=== PATIENT | female | born 1975 | race Caucasian/White ===

== ENCOUNTER 2016-07-13 00:22 | Inpatient (IN) | payer OTHER ==
[2016-07-13] VITALS (97 sets, daily range): BP systolic 102–157; BP diastolic 58–107; PULSE 79–114; RESP 16–18; TEMP 97.8–99; O2SAT 100
[~2016-07-13 00:22] MED LIST: LEVO.075 PO; SULF1SOL4 OS; Z.0.BCPILL PO
[2016-07-13] MEDS ORDERED: NS 1000 ML OTHER PRN (01:00)
[2016-07-13] MEDS ORDERED: OXYTOCIN 30 UNITS 500ML PREMIX IV ONE (01:00)
[2016-07-13] MEDS ORDERED: NS 500 ML BOLUS IV PRN (01:00)
[2016-07-13] MEDS ORDERED: LIDOCAINE HCL 1% 50 ML VIAL I-DERMAL PRN (01:00)
[2016-07-13] MEDS ORDERED: LIDOCAINE HCL 1% 50 ML VIAL INFIL PRN (01:00)
[2016-07-13] MEDS ORDERED: PENICILLIN G POT 5,000,000 UNITS/NS 100 ML (Mini-Bag Plus) IV ONE ×4 (01:00→07:00)
[2016-07-13] MEDS ORDERED: LACTATED RINGER'S 1000 ML BOLUS IV PRN (01:00)
[2016-07-13] MEDS ORDERED: ONDANSETRON HCL 4 MG/2 ML VIAL IV PRN (01:00)
[2016-07-13] MEDS ORDERED: MINERAL OIL 10 ML VIAL TOPICAL PRN (01:00)
[2016-07-13] MEDS ORDERED: ZOLPIDEM TARTRATE 10 MG TAB PO PRN (01:00)
[2016-07-13] MEDS ORDERED: DINOPROSTONE 10 MG INSERT - REMOVE AT 0600 VAGINAL ONE (01:00)
[2016-07-13] MEDS ORDERED: NS 1000 ML IV PRN (01:00)
[2016-07-13] MEDS ORDERED: CITRIC ACID-SODIUM CITRATE LIQ 30 ML UDC PO SCH (01:00)
[2016-07-13] MEDS: LACTATED RINGER'S 1000 ML IV SCH ×2 (01:15→11:28)
[2016-07-13] MEDS ORDERED: diphenhydrAMINE HCL 25 MG CAP PO SCH (02:00)
[2016-07-13 02:05] LABS: AUTOMATED NEUTROPHIL # 6.8 TH/MM3 (1.8-7.7); BASOPHIL % 0.4 % (0.0-2.0); EOSINOPHIL # 0.2 TH/MM3 (0-0.4); EOSINOPHIL % 1.9 % (0.0-4.0); HEMATOCRIT 34.3 % (35.0-46.0); HEMO FLAGS DIFF FINAL; LYMPH % 21.1 % (9.0-44.0); LYMPHOCYTE # 2.1 TH/MM3 (1.0-4.8); MEAN CELL VOLUME 84.2 FL (80.0-100.0); MEAN CORPUSCULAR HEMOGLOBIN 28.8 PG (27.0-34.0); MEAN CORPUSCULAR HGB CONC 34.3 % (32.0-36.0); MONO % 7.8 % (0.0-8.0); NEUT % 68.8 % (16.0-70.0); PLATELET COUNT 214 TH/MM3 (150-450); RED BLOOD COUNT 4.08 MIL/MM3 (4.00-5.30); WHITE BLOOD COUNT 9.9 TH/MM3 (4.0-11.0)
[2016-07-13 02:12] LABS: BACTERIA, URINE RARE /hpf; BLOOD, URINE NEG (NEG); CALCIUM OXALATE CRYSTALS,URINE MANY /hpf; GLUCOSE,URINE NEG (NEG); KETONE, URINE NEG (NEG); MUCUS URINE FEW /lpf (OCC); NITRITE,URINE NEG (NEG); SQUAMOUS EPITHELIAL CELL URINE 14 /hpf (0-5); TRANSITIONAL EPI CELLS, URINE <1 /hpf; URINE COLOR YELLOW (YELLW/STRAW)
[2016-07-13 02:14] LABS: COMMENT (UR) CULTURE INDICATED; CULTURE IF INDICATED CULTURE INDICATED
[2016-07-13] MEDS ORDERED: PRENCAP10 PO (02:21)
[2016-07-13] MEDS ORDERED: BENA25TA3 PO (02:22)
[2016-07-13] MEDS ORDERED: ACYC1POW8 PO (02:23)
[2016-07-13 02:29] LABS: ALT (GPT) 13 U/L (10-53); ANION GAP 10 MEQ/L (5-15); AST (GOT) 12 U/L (15-37); BICARBONATE 24.1 MEQ/L (21.0-32.0); BLOOD UREA NITROGEN 8 MG/DL (7-18); CHLORIDE 105 MEQ/L (98-107); GLOMERULAR FILTRATION RATE 137 ML/MIN (>89); POTASSIUM 3.7 MEQ/L (3.5-5.1); SODIUM (NA) 139 MEQ/L (136-145)
[2016-07-13 02:32] LABS: ALKALINE PHOSPHATASE 105 U/L (45-117); TOTAL BILIRUBIN ADULT 0.2 MG/DL (0.2-1.0)
[2016-07-13] MEDS ORDERED: OXYTOCIN 30 UNITS/NS 500ML PREMIX IV SCH (07:00)
--- NOTE | 2016-07-13 10:10 | HHI.HP ---
HPI Chief Complaint pt presents for induction of labor. +FM, denies vaginal bleeding, LOF or CTX Date Seen: Jul 13, 2016 Time Seen: 09:00 Travel History International Travel<30 Days: No Contact w/Intl Traveler<30Days: No History of Present Illness Para: 0 : 1 History Past Medical History Narrative Medical hypothyroidism Obstetric History Obstetric History g1 Past Surgical History Narrative Surgical denies Family History Narrative Family History mom-ovarian cancer dad-heart disease Social History Alcohol Use: No Tobacco Use: No Substance Abuse: No Allergies-Medications (Allergen,Severity, Reaction): Coded Allergies: No Known Allergies (Verified , 07/13/16) Home Meds Reported Medications Acyclovir (Bulk) (Acyclovir)1 Pow Pow1 Tab PO DAILY 07/13/16 Diphenhydramine (Benadryl Allergy)25 Mg Tab50 Mg PO Q6H PRN (ALLERGIES) Ref 0 07/13/16 Vit W/ Ferrous Fumara ( Multi +Dha 27-0.8-228 mg)1 Cap Cap1 Tab PO DAILY 07/13/16 Discontinued Reported Medications Levothyroxine Sodium (Synthroid)75 Mcg Tab75 Mcg PO DAILY Ref 0 07/21/08 Miscellaneous ( Control Pills) Tab1 Tab PO DAILY Ref 0 07/21/08 Discontinued Scripts Sulfacetamide Sodium (Bleph-10)5 Ml Soln2 Drop OS QID #20 ML Ref 0 Prov:COMFORT PRABHAKAR M.D. 07/21/08 Review of Systems Except as stated in HPI: all other systems reviewed are Neg Physical Exam Vital Signs Date Time Temp Pulse Resp B/P Pulse Ox O2 Delivery O2 Flow Rate FiO2 07/13/16 09:42 18 07/13/16 09:15 16 07/13/16 09:14 83 140/85 07/13/16 08:41 18 07/13/16 08:15 16 07/13/16 07:58 86 132/82 07/13/16 07:45 138/94 07/13/16 07:45 98.3 07/13/16 07:45 88 18 07/13/16 07:15 16 07/13/16 05:15 18 07/13/16 04:45 18 07/13/16 04:15 18 07/13/16 03:45 91 18 07/13/16 03:45 139/96 07/13/16 02:15 18 07/13/16 02:10 90 151/99 07/13/16 01:43 18 07/13/16 01:42 90 145/94 07/13/16 01:31 84 Narrative GENERAL: Well-nourished, well-developed patient. SKIN: Warm and dry. HEAD: Normocephalic and atraumatic. EYES: No scleral icterus. No injection or drainage. ENT: No nasal drainage noted. Mucous membranes pink. Airway patent. NECK: Supple, trachea midline. No JVD. CARDIOVASCULAR: Regular rate and rhythm without murmurs, gallops, or rubs. RESPIRATORY: Breath sounds equal bilaterally. No accessory muscle use. BREASTS: Bilateral exam showed no masses , no retractions, no nipple discharge. ABDOMEN/GI: Abdomen soft, non-tender, bowel sounds present, no rebound, no guarding Gravid to [-]40 weeks size Fundal Height: [-] GENITOURINARY: External Genitalia: intact and normal in appearance BUS glands: [-] Cervix: [-] Dilatation: [-] 1-2 Effacement: [-] 50 Station: [-] -3 Presentation: [-] vertex Membranes: [ ruptured] Uterine Contractions: [-] FHT's: Category: [-] 1 Baseline: [-] 140s Reactive: [-] + Variability: [-] mod Decels: [-] none EXTREMITIES: No cyanosis or edema. BACK: Nontender without obvious deformity. No CVA tenderness. NEUROLOGICAL: Awake and alert. Motor and sensory grossly within normal limits. Five out of 5 muscle strength in all muscle groups. Normal speech. Data Data Vital Signs Reviewed: Yes Orders Admit To Inpatient (07/13/16 ) Activity Oob Ad Sharon (07/13/16 00:42) ^ Labor Induction (07/13/16 00:42) ^ Vaginal Insert (07/13/16 00:42) ^ Vaginal Lavage (07/13/16 00:42) Heart (07/13/16 00:42) Admit To Inpatient (07/13/16 ) Vital Signs (Adult) .Per protocol (07/13/16 00:43) Activity Oob Ad Sharon (07/13/16 00:43) Heart (07/13/16 00:43) Amnioinfusion (07/13/16 00:43) Urinary Catheter Management .ONCE (07/13/16 00:43) Diet Liquid (07/13/16 Breakfast) Complete Blood Count With Diff (07/13/16 00:43) Hold Clot (07/13/16 00:43) Abo/Rh Blood Type (07/13/16 00:43) Urinalysis - C+S If Indicated (07/13/16 00:43) Resp Oxygen Non Rebreathe Mask (07/13/16 ) ^ Epidural / Intrathecal Infus (07/13/16 00:43) Lactated Ringer's 1000 Ml Inj (Lr 1000 M (07/13/16 01:00) Lactated Ringer's 1000 Ml Inj (Lr 1000 M (07/13/16 01:00) Sodium Chlorid 0.9% 500 Ml Inj (Ns 500 M (07/13/16 01:00) Sodium Chlor 0.9% 1000 Ml Inj (Ns 1000 M (07/13/16 01:00) Lidocaine 1% Inj (50 Ml) (Xylocaine 1% I (07/13/16 01:00) Citric Acid-Sodium Citrate Liq (Bicitra (07/13/16 01:00) Ondansetron Inj (Zofran Inj) (07/13/16 01:00) Fentanyl Inj (Fentanyl Inj) (07/13/16 01:00) Fentanyl Inj (Fentanyl Inj) (07/13/16 01:00) Penicillin G Potassium Inj (Pfizerpen-G (07/13/16 01:00) Penicillin G Potassium Inj (Pfizerpen-G (07/13/16 06:00) Oxytocin 30 Units-500ml Premix (Pitocin (07/13/16 01:00) Lidocaine 1% Inj (50 Ml) (Xylocaine 1% I (07/13/16 01:00) Light Mineral Oil (Muri-Lube Oil) (07/13/16 01:00) Zolpidem (Ambien) (07/13/16 01:00) Dinoprostone Vag Insert (Cervidil Vag In (07/13/16 01:00) Sodium Chlor 0.9% 1000 Ml Inj (Ns 1000 M (07/13/16 01:00) Comprehensive Metabolic Panel (07/13/16 01:53) Diphenhydramine (Benadryl) (07/13/16 02:00) Urine Culture (07/13/16 00:40) ^ Non Stress Test (07/13/16 06:34) Response To Medication .Post New Med Administration, Reaction (07/13/16 06:34) ^ Discontinue Medication (07/13/16 06:34) Oxytocin 30 Units-500ml Premix (Pitocin (07/13/16 07:00) Penicillin G Potassium Inj (Pfizerpen-G (07/13/16 07:00) Penicillin G Potassium Inj (Pfizerpen-G (07/13/16 11:00) Labs Laboratory Tests Test 07/13/16 07/13/16 00:40 01:10 Urine Color YELLOW Urine Turbidity HAZY Urine pH 6.0 Urine Specific [place] 1.020 Urine Protein TRACE Urine Glucose (UA) NEG Urine Ketones NEG Urine Occult Blood NEG Urine Nitrite NEG Urine Bilirubin NEG Urine Urobilinogen LESS THAN 2.0 Urine Leukocyte Esterase LARGE Urine RBC 4 Urine WBC 16 Urine Squamous Epithelial 14 Cells Urine Transitional Epithelial <1 Cells Urine Calcium Oxalate Crystals MANY Urine Bacteria RARE Urine Mucus FEW Microscopic Urinalysis Comment CULTURE INDICATED White Blood Count 9.9 Red Blood Count 4.08 Hemoglobin 11.8 Hematocrit 34.3 Mean Corpuscular Volume 84.2 Mean Corpuscular Hemoglobin 28.8 Mean Corpuscular Hemoglobin 34.3 Concent Red Cell Distribution Width 14.0 Platelet Count 214 Mean Platelet Volume 8.5 Neutrophils (%) (Auto) 68.8 Lymphocytes (%) (Auto) 21.1 Monocytes (%) (Auto) 7.8 Eosinophils (%) (Auto) 1.9 Basophils (%) (Auto) 0.4 Neutrophils # (Auto) 6.8 Lymphocytes # (Auto) 2.1 Monocytes # (Auto) 0.8 Eosinophils # (Auto) 0.2 Basophils # (Auto) 0.0 CBC Comment DIFF FINAL Differential Comment Sodium Level 139 Potassium Level 3.7 Chloride Level 105 Carbon Dioxide Level 24.1 Anion Gap 10 Blood Urea Nitrogen 8 Creatinine 0.50 Estimat Glomerular Filtration 137 Rate Random Glucose 84 Calcium Level 9.2 Total Bilirubin 0.2 Aspartate Amino Transf 12 (AST/SGOT) Alanine Aminotransferase 13 (ALT/SGPT) Alkaline Phosphatase 105 Total Protein 5.7 Albumin 2.3 Blood Type O POSITIVE Blood Bank Comment Band and Hold Date/Time Procedure Status Source Growth 07/13/16 00:40 Urine Culture Received Urine Clean Catch Pending Assessment/Plan Problem List: (1) Gestational hypertension Plan: nl labs, asymptomatic (2) Plan: s/p cervidil cont pit (3) AMA (advanced maternal age) primigravida 35+ Louis Martinez MD Jul 13, 2016 10:10
[2016-07-13] MEDS: PENICILLIN G POT 2,500,000 UNITS/NS 100 ML IV SCH ×12 (10:56→23:32)
[2016-07-13] MEDS ORDERED: fentaNYL 2MCG-BUPIV 0.125% INJ 100 ML ONE (12:56)
[2016-07-13] MEDS ORDERED: NO SYSTEM NARCOTICS PRN (15:45)
[2016-07-13] MEDS ORDERED: DO NOT ADMINISTER ANTICOAGULANTS PRN (15:45)
[2016-07-13] MEDS ORDERED: fentaNYL 2MCG-BUPIV 0.125% 100 ML EPIDURAL SCH (15:45)
[2016-07-13] MEDS ORDERED: ePHEDrine/NS 25 MG/5 ML SYR IV PRN (15:45)
[2016-07-14] VITALS (29 sets, daily range): BP systolic 121–152; BP diastolic 80–98; PULSE 84–114; RESP 15–22; TEMP 97.9–99.9
[2016-07-14] MEDS ORDERED: MISOPROSTOL 200 MCG TAB ONE (01:10)
--- NOTE | 2016-07-14 01:26 | PD.LABORPN ---
Subjective Subjective pt comfortable with epidural Objective Vital Signs Vital Signs Date Time Temp Pulse Resp B/P Pulse Ox O2 Delivery O2 Flow Rate FiO2 07/14/16 01:00 106 07/14/16 01:00 135/81 07/14/16 00:44 111 07/14/16 00:44 121/80 07/14/16 00:23 20 07/14/16 00:15 106 152/98 07/14/16 00:00 110 141/90 07/13/16 23:45 98 139/93 07/13/16 23:33 18 07/13/16 23:30 109 130/96 07/13/16 23:15 97 126/60 07/13/16 23:00 96 140/91 07/13/16 22:45 90 135/86 07/13/16 22:30 96 18 139/92 07/13/16 22:19 99.0 07/13/16 22:15 114 139/94 07/13/16 22:00 136/94 07/13/16 22:00 136/94 07/13/16 22:00 92 07/13/16 21:45 102 128/89 07/13/16 21:41 18 07/13/16 21:30 99 140/102 07/13/16 21:15 126/90 07/13/16 21:15 101 07/13/16 21:00 92 07/13/16 21:00 124/88 07/13/16 20:45 18 07/13/16 20:45 90 121/74 07/13/16 20:30 87 07/13/16 20:30 116/65 07/13/16 20:15 86 124/73 07/13/16 20:00 96 117/71 07/13/16 19:45 95 130/87 07/13/16 19:30 93 130/87 07/13/16 19:30 18 07/13/16 19:15 96 138/85 07/13/16 19:00 92 133/86 07/13/16 19:00 98.3 16 07/13/16 18:45 102 16 126/80 07/13/16 18:30 104 127/75 07/13/16 18:15 92 16 132/72 07/13/16 18:01 90 117/75 07/13/16 17:45 95 139/83 07/13/16 17:30 18 07/13/16 17:30 85 136/83 Objective Pelvic Exam: Cervix: [-] Dilatation: [-] complete Effacement: [-] Station: [-] Presentation: [-] vtx Membranes: [ ruptured] Uterine Contractions: [-] FHT's: Category: [-] 1 Baseline: [-] 140s Reactive: [-] Variability: [-] Decels: [-] Assessment/Plan Problem List: (1) Gestational hypertension Plan: nl labs, asymptomatic (2) Plan: pt has been pushing for 1 hour cont pushing (3) AMA (advanced maternal age) primigravida 35+ Louis Martinez MD Jul 14, 2016 01:26
[2016-07-14] MEDS: LACTATED RINGER'S 1000 ML IV SCH (01:39)
[2016-07-14] MEDS ORDERED: SODIUM CHLORIDE 0.9% FLUSH 10 ML FLUSH IV FLUSH PRN (03:30)
[2016-07-14] MEDS ORDERED: OXYTOCIN 30 UNITS-500ML PREMIX 500 ML IV ONE (03:30)
[2016-07-14] MEDS ORDERED: BENZOCAINE 20% TOPICAL SPRAY 60 ML CAN TOPICAL PRN (03:30)
[2016-07-14] MEDS ORDERED: OXYTOCIN 10 UNIT/ML AMP XX PRN (03:30)
[2016-07-14] MEDS ORDERED: ONDANSETRON ODT 4 MG TAB PO PRN (03:30)
[2016-07-14] MEDS ORDERED: WITCH HAZEL 50%/GLYCERIN 12.5% 40 PAD JAR TOPICAL PRN (03:30)
[2016-07-14] MEDS ORDERED: ACETAMINOPHEN 325 MG TAB PO PRN (03:30)
[2016-07-14] MEDS ORDERED: ZOLPIDEM TARTRATE 5 MG TAB PO PRN (03:30)
[2016-07-14] MEDS ORDERED: oxyCODONE/ACETAMINOPHEN 5 MG/325 MG TAB PO PRN (03:30)
[2016-07-14] MEDS ORDERED: DOCUSATE SODIUM 50 MG/SENNA 8.6 MG TAB PO PRN (03:30)
[2016-07-14] MEDS ORDERED: ALUMINUM/MAGNESIUM/SIMETH 30 ML CUP PO PRN (03:30)
--- NOTE | 2016-07-14 03:30 | PD.OB.DELI ---
Delivery Date: Jul 14, 2016 Anesthesia: Epidural, Lidocaine local to perineum Episiotomy: None Vaginal Delivery: Normal Presentation: Occiput anterior Delayed cord clamping (45 sec): Yes : Male, Single One Minute : 9 Five Minute : 9 Weight: 9-1 Placenta: Spontaneous delivery, Intact, 3 vessel cord Laceration: Vaginal laceration, 2 deg (repaired with 2-0 chromic) Additional Information right periurethral laceration repaired with 3-0 chromic in a running fashion Louis Martinez MD Jul 14, 2016 03:30
[2016-07-14] MEDS: IBUPROFEN 600 MG TAB PO PRN ×3 (04:38→17:22)
[2016-07-14] MEDS ORDERED: SODIUM CHLORIDE 0.9% FLUSH 10 ML FLUSH IV FLUSH SCH (09:00)
--- NOTE | 2016-07-14 12:40 | HHI.OB ---
Subjective Post Day: 0 Remarks Pt doing well , no co Objective Vitals/I&O Vital Signs Date Time Temp Pulse Resp B/P Pulse Ox O2 Delivery O2 Flow Rate FiO2 07/14/16 09:00 97.9 95 15 121/83 07/14/16 06:00 99.9 07/14/16 05:55 18 07/14/16 05:55 84 137/84 07/14/16 04:30 141/85 07/14/16 04:30 97 07/14/16 04:15 111 140/83 07/14/16 04:10 18 07/14/16 04:00 112 136/87 07/14/16 03:55 18 07/14/16 03:45 108 139/85 07/14/16 03:40 18 07/14/16 03:30 114 138/92 07/14/16 03:25 98.9 07/14/16 03:17 20 07/14/16 03:15 96 137/87 07/14/16 03:00 104 07/14/16 03:00 22 07/14/16 03:00 143/89 07/14/16 02:45 100 07/14/16 02:45 150/95 07/14/16 02:30 98 07/14/16 02:30 147/86 07/14/16 02:15 141/87 07/14/16 02:15 100 07/14/16 02:00 102 07/14/16 02:00 144/88 07/14/16 01:45 20 07/14/16 01:45 142/85 07/14/16 01:45 113 07/14/16 01:42 99.1 07/14/16 01:40 20 07/14/16 01:30 114 20 07/14/16 01:30 146/95 07/14/16 01:16 105 142/86 07/14/16 01:00 106 07/14/16 01:00 135/81 07/14/16 00:44 111 07/14/16 00:44 121/80 07/14/16 00:23 20 07/14/16 00:15 106 152/98 07/14/16 00:00 110 141/90 07/13/16 23:45 98 139/93 07/13/16 23:33 18 07/13/16 23:30 109 130/96 07/13/16 23:15 97 126/60 07/13/16 23:00 96 140/91 07/13/16 22:45 90 135/86 07/13/16 22:30 96 18 139/92 07/13/16 22:19 99.0 07/13/16 22:15 114 139/94 07/13/16 22:00 136/94 07/13/16 22:00 136/94 07/13/16 22:00 92 07/13/16 21:45 102 128/89 07/13/16 21:41 18 07/13/16 21:30 99 140/102 07/13/16 21:15 126/90 07/13/16 21:15 101 07/13/16 21:00 92 07/13/16 21:00 124/88 07/13/16 20:45 18 07/13/16 20:45 90 121/74 07/13/16 20:30 87 07/13/16 20:30 116/65 07/13/16 20:15 86 124/73 07/13/16 20:00 96 117/71 07/13/16 19:45 95 130/87 07/13/16 19:30 93 130/87 07/13/16 19:30 18 07/13/16 19:15 96 138/85 07/13/16 19:00 92 133/86 07/13/16 19:00 98.3 16 07/13/16 18:45 102 16 126/80 07/13/16 18:30 104 127/75 07/13/16 18:15 92 16 132/72 07/13/16 18:01 90 117/75 07/13/16 17:45 95 139/83 07/13/16 17:30 18 07/13/16 17:30 85 136/83 07/13/16 17:15 95 132/84 07/13/16 17:00 103 114/82 07/13/16 16:55 98.3 07/13/16 16:45 92 131/87 07/13/16 16:45 18 07/13/16 16:30 16 07/13/16 16:30 99 120/84 07/13/16 16:15 80 102/58 07/13/16 16:00 82 115/65 07/13/16 15:45 90 141/87 07/13/16 15:30 96 16 125/84 07/13/16 15:15 99 122/88 07/13/16 15:00 97.8 83 106/73 07/13/16 14:45 16 07/13/16 14:45 86 106/65 07/13/16 14:30 16 07/13/16 14:30 85 108/65 07/13/16 14:20 90 07/13/16 14:15 95 108/61 07/13/16 14:15 79 07/13/16 14:10 83 07/13/16 14:06 83 120/74 07/13/16 14:05 80 07/13/16 14:04 81 118/70 07/13/16 14:02 90 120/72 07/13/16 14:00 90 07/13/16 14:00 83 118/74 07/13/16 13:59 16 07/13/16 13:58 79 121/66 07/13/16 13:56 85 119/68 07/13/16 13:54 97 113/74 07/13/16 13:52 87 129/73 07/13/16 13:50 93 07/13/16 13:50 93 128/83 07/13/16 13:48 91 124/72 07/13/16 13:46 94 126/72 07/13/16 13:45 16 07/13/16 13:45 91 07/13/16 13:44 87 125/72 07/13/16 13:42 87 122/71 07/13/16 13:40 100 07/13/16 13:40 86 07/13/16 13:40 86 126/79 07/13/16 13:39 82 121/66 07/13/16 13:35 100 07/13/16 13:35 95 07/13/16 13:02 84 07/13/16 13:00 84 16 134/85 07/13/16 13:00 98.5 07/13/16 12:56 16 Objective Remarks GENERAL: Well-nourished, well-developed patient. CARDIOVASCULAR: Regular rate and rhythm without murmurs, gallops, or rubs. RESPIRATORY: Breath sounds equal bilaterally. No accessory muscle use. ABDOMEN/GI: Abdomen soft, non-tender. Fundus: Firm, non-tender at umbilicus. GENITOURINARY: Light to moderate bleeding. EXTREMITIES: No cyanosis or edema, non-tender, without signs of DVT. Medications and IVs Current Medications Medications (Trade) Dose Ordered Sig/Viridiana Route Start Time Stop Time Status Last Admin Lactated Ringer's 1,000 ml @ 125 mls/hr Q8H IV 07/13/16 01:00 07/14/16 01:39 Lactated Ringer's 1,000 ml @ 3,000 mls/hr BOLUS PRN IV 07/13/16 01:00 Sodium Chloride 500 ml @ 1,000 mls/hr BOLUS PRN IV 07/13/16 01:00 (NS 1000 ml Inj) 1,000 ml @ 100 mls/hr Q10H PRN IV 07/13/16 01:00 (Zofran Inj) 4 mg Q6H PRN IV 07/13/16 01:00 (fentaNYL INJ) 50 mcg Q1H PRN IV PUSH 07/13/16 01:00 (fentaNYL INJ) 100 mcg Q1H PRN IV PUSH 07/13/16 01:00 07/13/16 12:27 (Muri-Lube Oil) 10 ml UNSCH PRN TOPICAL 07/13/16 01:00 Zolpidem Tartrate 10 mg 10 mg HS PRN PO 07/13/16 01:00 Sodium Chloride 1,000 ml @ 0 mls/hr UNSCH PRN OTHER 07/13/16 01:00 Oxytocin 500 ml @ 0 mls/hr TITRATE IV 07/13/16 07:00 07/13/16 07:18 (Pfizerpen-G Inj/ NS Inj) 100 ml @ 200 mls/hr Q4H IV 07/13/16 11:00 07/13/16 23:32 Miscellaneous Information No systemic narcotics to be given except... UNSCH PRN .XX 07/13/16 15:45 07/14/16 15:44 Miscellaneous Information DO NOT ADMINISTER ANY ANTICOAGUL... UNSCH PRN .XX 07/13/16 15:45 07/14/16 15:44 (fentaNYL 2MCG-BUPIV 0.125% INJ) 100 ml @ 0 mls/hr TITRATE EPIDURAL 07/13/16 15:45 07/14/16 01:40 (ePHEDrine/NS 25 MG/5 ML SYR) 10 mg UNSCH PRN IV 07/13/16 15:45 07/14/16 15:44 (NS Flush) 2 ml BID IV FLUSH 07/14/16 09:00 (NS Flush) 2 ml UNSCH PRN IV FLUSH 07/14/16 03:30 (Tylenol) 650 mg Q4H PRN PO 07/14/16 03:30 (Motrin) 600 mg Q6H PRN PO 07/14/16 03:30 07/14/16 11:21 (Percocet 5-325 Mg) 1 tab Q4H PRN PO 07/14/16 03:30 (Percocet 5-325 Mg) 2 tab Q4H PRN PO 07/14/16 03:30 (Americaine 20% Top Spr) 1 spray Q4H PRN TOPICAL 07/14/16 03:30 07/14/16 09:51 (Tucks Pads) 1 applic QID PRN TOPICAL 07/14/16 03:30 07/14/16 09:52 (Carrol-Colace) 2 tab Q12H PRN PO 07/14/16 03:30 (Ambien) 5 mg HS PRN PO 07/14/16 03:30 (M-M-R Ii Inj) 0.5 ml ONCE ONCE SQ 07/14/16 16:00 07/14/16 16:01 (Boostrix Inj) 0.5 ml ONCE ONCE IM 07/14/16 16:00 07/14/16 16:01 (Mag-Al Plus Susp Liq) 15 ml Q8H PRN PO 07/14/16 03:30 (Zofran Odt) 4 mg Q6H PRN PO 07/14/16 03:30 Assessment/Plan Problem List: (1) Gestational hypertension Plan: nl labs, asymptomatic (2) Plan: pt has been pushing for 1 hour cont pushing (3) AMA (advanced maternal age) primigravida 35+ Assessment and Plan PPD # 0 s/p , doing well 1. routine care Discharge Planning plan for discharge PPD 1-2 Tila Hernandez MD Jul 14, 2016 12:40
[2016-07-14] MEDS ORDERED: MEASLES, MUMPS, RUBELLA VACCINE 0.5 ML VIAL SQ ONE (16:00)
[2016-07-14] MEDS ORDERED: DIPHTH/TETANUS/ACEL PERTUSSIS (BOOSTER) 0.5 ML VIAL/PFS IM ONE (16:00)
[2016-07-14] MEDS: oxyCODONE/ACETAMINOPHEN 5 MG/325 MG TAB PO PRN (21:45)
[2016-07-15] MEDS: IBUPROFEN 600 MG TAB PO PRN ×4 (01:09→21:41)
[2016-07-15 09:00] VITALS: BP 121/80; PULSE 80; RESP 18; TEMP 98
[2016-07-15] MEDS ORDERED: OXYC1TAB63 PO (11:19)
[2016-07-15 11:20] VITALS: RESP 18
--- NOTE | 2016-07-15 11:21 | HHI.DCPOC ---
Discharge Care Plan Your Health Problems Are: Vaginal delivery Report Symptoms to Your Doctor -Temperate above 100.5 degrees -Redness, of incision or excessive or foul smelling drainage -Unusual pain or calf pain -Increased vaginal bleeding -Painful or difficulty urinating -Feelings of extreme sadness or anxiety after 2 weeks Goals to Promote Your Health * To prevent worsening of your condition and complications * To maintain your health at the optimal level Directions to Meet Your Goals Take your medications as prescribed Follow your dietary instruction Follow activity as directed Ensure plenty of rest for recovery Drink fluids for hydration Keep your appointments as scheduled Take your immunizations and boosters as scheduled If your symptoms worsen call your PCP, if no PCP go to Urgent Care Center or Emergency Room Smoking is Dangerous to Your Health. Avoid second hand smoke Call the 24-hour crisis hotline for domestic abuse at Tila Hernandez MD Jul 15, 2016 11:20
[2016-07-15 14:40] VITALS: RESP 18
[2016-07-15 15:55] VITALS: RESP 18
[2016-07-15 18:46] VITALS: RESP 18
[2016-07-15] MEDS: oxyCODONE/ACETAMINOPHEN 5 MG/325 MG TAB PO PRN (23:54)
[2016-07-16] MEDS: IBUPROFEN 600 MG TAB PO PRN (04:51)
== END 2016-07-16 09:04 | disposition home or self-care (01) | DRG 775 ==
LOC: H2EB 00:22 → H1EA 07-14 05:47
PROVIDERS: ADMIT Obstetrics & Gynecology; ATTEND Obstetrics & Gynecology
PROC: 00HU33Z Insertion of Infusion Device into Spinal Canal, Percutaneous Approach (ICD-10-PCS; 2016-07-13)
PROC: 3E0R3CZ (ICD-10-PCS; 2016-07-13)
PROC: 0KQM0ZZ Repair Perineum Muscle, Open Approach (ICD-10-PCS; principal; 2016-07-14)
PROC: 10E0XZZ Delivery of Products of Conception, External Approach (ICD-10-PCS; 2016-07-14)
DX: O99.284 Endocrine, nutritional and metabolic diseases complicating childbirth (principal); E03.9 Hypothyroidism, unspecified; O09.519 Supervision of elderly primigravida, unspecified trimester; O13.4 Gestational [pregnancy-induced] hypertension without significant proteinuria, complicating childbirth; Z3A.00 Weeks of gestation of pregnancy not specified; O70.1 Second degree perineal laceration during delivery; O71.82 Other specified trauma to perineum and vulva; Z37.0 Single live birth
CPT/HCPCS: 59025; 80053; 81001; 85025; 86900; 86901; 87086; 90715; J2540; J2590; J3010; J7120